=== PATIENT | female | born 1960 | race Caucasian/White ===

== ENCOUNTER 2017-03-31 06:42 | Day surgery (SDC) | payer MEDICAID ==
[2017-03-31] MEDS ORDERED: Sodium Chloride 0.9% 10 ML Syringe FLUSH PRN (06:45)
[2017-03-31] MEDS ORDERED: Lactated Ringers 1,000 ML IV SCH (06:45)
[2017-03-31] MEDS ORDERED: Propofol 200 MG/20 ML SDV IV ONE (08:00)
[2017-03-31] MEDS ORDERED: Midazolam 1 MG/ML 2 ML SDV IV ONE (08:00)
[2017-03-31] MEDS ORDERED: Lidocaine 2% 100 MG/5 ML Syringe IVPUSH ONE (08:00)
--- NOTE | 2017-03-31 08:13 | PCM.OPNOTE ---
- General Post-Op/Procedure Note Date of Surgery/Procedure: 03/31/17 Operative Procedure(s): egd with bx Findings: mild gastritis esophagitis Pre Op Diagnosis: gerd Post-Op Diagnosis: mild gastritis esophagitis Anesthesia Technique: MAC Primary Surgeon: Asael Kilgore Anesthesia Provider: Kaya Cali Pathology: stomach and duodenum Complications: None Condition: Good Free Text/Narrative:: see dictation
--- NOTE | 2017-03-31 13:46 | OR ---
DATE OF OPERATION: 03/31/2017 SURGEON: Asael Kilgore MD PROCEDURE PERFORMED: Esophagogastroduodenoscopy with cold forceps biopsy. PREOPERATIVE DIAGNOSIS: History of reflux disease, heartburn, and cough. POSTOPERATIVE DIAGNOSIS: Gastritis and esophagitis. INDICATIONS FOR PROCEDURE: This is a 56-year-old white female, who has had a longstanding history of gastroesophageal reflux disease. Recently, she has had an exacerbation of her symptoms. This has included heartburn as well as development of a chronic cough. She was offered and accepted an EGD. DESCRIPTION OF PROCEDURE: After an excellent IV sedation was administered, the bite block was inserted. The flexible endoscope was passed without difficulty down to the patient's esophagus into the stomach. The stomach was insufflated, and the scope was passed through the pylorus to the second portion of duodenum and slowly withdrawn. The following findings were noted. The duodenum was essentially unremarkable. No evidence of ulceration or duodenitis. Stomach, mild gastritis was noted. Multiple biopsies were taken, especially in the antrum. GE junction measured approximately 35 cm. The esophagus while did not demonstrate any marked esophagitis, some mild erythema was noted, especially around the area of the GE junction and biopsies were taken. The remainder of our esophageal exam was unremarkable. Stomach was deflated. Scope was removed. The patient tolerated the procedure well, and was taken to recovery room in good condition. /[id number] /MODL
== END 2017-03-31 09:04 | disposition home or self-care (01) ==
LOC: FB.SDS 06:42
PROVIDERS: ATTEND Surgery
DX: K29.40 Chronic atrophic gastritis without bleeding (principal); K20.9 Esophagitis, unspecified; J45.909 Unspecified asthma, uncomplicated; Z88.1 Allergy status to other antibiotic agents; Z91.040 Latex allergy status; Z88.8 Allergy status to other drugs, medicaments and biological substances; Z79.899 Other long term (current) drug therapy
CPT/HCPCS: 43239; 88305; 88342; J2250; J2704; J7120

== ENCOUNTER 2019-12-10 12:15 | Emergency (ER) | payer OTHER ==
[2019-12-10] MEDS ORDERED: Ondansetron 4 MG Tab.DIS PO ONE (12:16)
--- NOTE | 2019-12-10 13:30 | EDM.PDOC ---
ED HPI GENERAL MEDICAL PROBLEM - General Chief Complaint: Respiratory Problem Stated Complaint: COVID SYMPTOMS Time Seen by Provider: 12/10/19 12:25 Source of Information: Reports: Patient History Limitations: Reports: No Limitations - History of Present Illness INITIAL COMMENTS - FREE TEXT/NARRATIVE: Patient presented to the ED because of Covid symptoms. She developed fever and chills 5 days ago. # days prior to ER visit sshestarted to have cough productive of greenish phlegm and some dyspnea. There is no N/V/D. Head Pain Score (Numeric/FACES): 5 - Related Data Allergies Allergy/AdvReac Type Severity Reaction Status Date / Time latex Allergy Hives Verified 12/10/19 12:32 lidocaine Allergy Tachycardia Verified 12/10/19 12:32 oxycodone [From Tylox] Allergy Confusion Verified 12/10/19 12:32 ciprofloxacin [From Cipro] AdvReac Nausea and Verified 12/10/19 12:32 Vomiting Home Meds: Home Meds Albuterol [IJD: Albuterol HFA] 1 - 2 puff PO ASDIRECTED PRN 03/28/17 [History] Beclomethasone Dipropionate [Qvar 40 Mcg] 2 puff IH BID 03/28/17 [History] Celecoxib 100 mg PO DAILY 03/28/17 [History] LORazepam [Ativan] 0.5 mg PO QID PRN 03/28/17 [History] Sucralfate 1 gm PO QID 03/28/17 [History] Venlafaxine HCl [Venlafaxine ER] 37.5 mg PO DAILY 03/28/17 [History] Zolpidem [Ambien] 5 mg PO BEDTIME PRN 03/28/17 [History] estradioL [Estradiol] 0.5 mg VAG MOWEFR 03/28/17 [History] Ondansetron [Zofran ODT] 4 mg PO Q4H PRN #7 tab.dis 12/10/19 [Rx] Past Medical History HEENT History: Reports: Impaired Vision, Retinal Detachment Cardiovascular History: Reports: Other (See Below) Other Cardiovascular History: SLIGHTLY PROLAPSED MITRAL VALVE. Respiratory History: Reports: Asthma Gastrointestinal History: Reports: GERD Genitourinary History: Reports: UTI, Recurrent WARM IN WORKER History: Reports: Other (See Below) Other WARM IN WORKER History: MENOPAUSAL, VAGINITIS.VULVOVAGINITIS Musculoskeletal History: Reports: Gout Neurological History: Reports: None Psychiatric History: Reports: Anxiety Endocrine/Metabolic History: Reports: Obesity/BMI 30+ Hematologic History: Reports: None Immunologic History: Reports: None Oncologic (Cancer) History: Reports: None Dermatologic History: Reports: Eczema - Past Surgical History Head Surgeries/Procedures: Reports: None HEENT Surgical History: Reports: Detached Retina, Eye Surgery, Tonsillectomy Cardiovascular Surgical History: Reports: None Respiratory Surgical History: Reports: None GI Surgical History: Reports: Appendectomy, EGD Female Surgical History: Reports: Section, Hysterectomy Endocrine Surgical History: Reports: None Neurological Surgical History: Reports: None Musculoskeletal Surgical History: Reports: None Oncologic Surgical History: Reports: None Dermatological Surgical History: Reports: None Social & Family History - Caffeine Use Caffeine Use: Reports: Coffee ED ROS GENERAL - Review of Systems Review Of Systems: See Below Constitutional: Reports: Fever, Chills, Malaise, Weakness HEENT: Reports: No Symptoms, Contact Lenses Respiratory: Reports: Shortness of Breath, Cough, Sputum Cardiovascular: Reports: No Symptoms Endocrine: Reports: No Symptoms GI/Abdominal: Reports: No Symptoms : Reports: No Symptoms Musculoskeletal: Reports: No Symptoms Skin: Reports: No Symptoms Neurological: Reports: No Symptoms Psychiatric: Reports: No Symptoms Hematologic/Lymphatic: Reports: No Symptoms Immunologic: Reports: No Symptoms ED EXAM, GENERAL - Physical Exam Exam: See Below Exam Limited By: No Limitations General Appearance: Alert, No Apparent Distress Eye Exam: Bilateral Eye: PERRL Ears: Normal External Exam, Normal Canal Nose: Normal Inspection, Normal Mucosa, No Blood Throat/Mouth: Normal Inspection, Normal Lips Head: Atraumatic, Normocephalic Neck: Normal Inspection, Supple, Non-Tender, Full Range of Motion Respiratory/Chest: No Respiratory Distress, Lungs Clear, Normal Breath Sounds, No Accessory Muscle Use, Chest Non-Tender Cardiovascular: Normal Peripheral Pulses, Regular Rate, Rhythm, No Edema, No Gallop, No JVD, No Murmur, No Rub GI/Abdominal: Normal Bowel Sounds, Soft, Non-Tender, No Organomegaly Back Exam: Normal Inspection, Full Range of Motion Course - Vital Signs Text/Narrative:: Labs/CXR was discussed with patient COVID PCR-positive NS 1 L bolus Zofran 4 mg IV x1 Last Recorded V/S: Last Vital Signs Temp 37.7 C 12/10/19 14:15 Pulse 86 12/10/19 14:15 Resp 20 12/10/19 14:15 BP 120/79 12/10/19 14:15 Pulse Ox 95 12/10/19 14:15 - Orders/Labs/Meds Orders: Active Orders 24 hr Category Date Time Status Chest 1V Frontal [CR] Stat Exams 12/10/19 12:24 Ordered CBC WITH AUTO DIFF [HEME] Stat Lab 12/10/19 13:59 Ordered COMPREHENSIVE METABOLIC PN,CMP [CHEM] Stat Lab 12/10/19 13:59 Ordered CRP [C-REACTIVE PROTEIN] [CHEM] Stat Lab 12/10/19 13:59 Ordered Sodium Chloride 0.9% [Normal Saline] 1,000 ml Med 12/10/19 14:30 Active IV ASDIRECTED Sodium Chloride 0.9% [Saline Flush] Med 12/10/19 14:20 Active 10 ml FLUSH ASDIRECTED PRN Isolation [COMM] Routine Oth 12/10/19 12:28 Ordered Saline Lock Insert [OM.PC] Routine Oth 12/10/19 14:20 Ordered Medication Orders Sodium Chloride (Normal Saline) 1,000 mls @ 999 mls/hr IV ASDIRECTED ZO Sodium Chloride (Saline Flush) 10 ml FLUSH ASDIRECTED PRN PRN Reason: Keep Vein Open Labs: Laboratory Tests 12/10/19 Range/Units 12:48 SARS-CoV-2 RNA (PAT) Positive H (NEGATIVE) Meds: Medications Generic Name Dose Route Start Last Admin Trade Name Freq PRN Reason Stop Dose Admin Sodium Chloride 1,000 mls @ 999 mls/hr 12/10/19 14:30 Normal Saline IV ASDIRECTED ZO Sodium Chloride 10 ml 12/10/19 14:20 Saline Flush FLUSH ASDIRECTED PRN Keep Vein Open Discontinued Medications Generic Name Dose Route Start Last Admin Trade Name Freq PRN Reason Stop Dose Admin Ondansetron HCl 4 mg 12/10/19 14:20 Zofran IVPUSH 12/10/19 14:21 ONETIME ONE Departure - Departure Time of Disposition: 15:50 Disposition: Home, Self-Care 01 Condition: Good Clinical Impression: COVID-19 - Discharge Information Prescriptions: Ondansetron [Zofran ODT] 4 mg PO Q4H PRN #7 tab.dis PRN Reason: Nausea Instructions: COVID-19 Frequently Asked Questions Referrals: Davey Abel MD [Primary Care Provider] - Forms: ED Department Discharge Additional Instructions: Please read discharge instructions on COVID 19 Increase oral fluids Zofran ODT 4 mg every 4 hours as needed for nausea Take ibuprofen 800 mg with tylenol 1000 mg every 8 hours as needed for pain/fever Take Vit C,D,Zinc 1 tablet each daily Follow up as needed Sepsis Event Note (ED) - Evaluation Sepsis Screening Result: Possible Sepsis Risk - Focused Exam Vital Signs: Vital Signs Temp Temp Pulse Resp BP Pulse Ox 12/10/19 14:15 37.7 C 86 20 120/79 95 12/10/19 12:20 37.7 C 87 21 H 141/86 H 99 - My Orders Last 24 Hours: My Active Orders 12/10/19 12:24 Chest 1V Frontal [CR] Stat 12/10/19 12:28 Isolation [COMM] Routine 12/10/19 13:59 CBC WITH AUTO DIFF [HEME] Stat COMPREHENSIVE METABOLIC PN,CMP [CHEM] Stat CRP [C-REACTIVE PROTEIN] [CHEM] Stat 12/10/19 14:20 Sodium Chloride 0.9% [Saline Flush] 10 ml FLUSH ASDIRECTED PRN Saline Lock Insert [OM.PC] Routine 12/10/19 14:30 Sodium Chloride 0.9% [Normal Saline] 1,000 ml IV ASDIRECTED - Assessment/Plan Last 24 Hours: My Active Orders 12/10/19 12:24 Chest 1V Frontal [CR] Stat 12/10/19 12:28 Isolation [COMM] Routine 12/10/19 13:59 CBC WITH AUTO DIFF [HEME] Stat COMPREHENSIVE METABOLIC PN,CMP [CHEM] Stat CRP [C-REACTIVE PROTEIN] [CHEM] Stat 12/10/19 14:20 Sodium Chloride 0.9% [Saline Flush] 10 ml FLUSH ASDIRECTED PRN Saline Lock Insert [OM.PC] Routine 12/10/19 14:30 Sodium Chloride 0.9% [Normal Saline] 1,000 ml IV ASDIRECTED
[2019-12-10] MEDS ORDERED: Ondansetron 4 MG/2 ML SDV IVPUSH ONE (14:20)
[2019-12-10] MEDS ORDERED: Sodium Chloride 0.9% 10 ML Syringe FLUSH PRN (14:20)
[2019-12-10] MEDS ORDERED: Sodium Chloride 0.9% 1,000 ML IV SCH (14:30)
[2019-12-10] MEDS ORDERED: Sodium Chloride 0.9% 1,000 ML IV ONE (15:05)
[2019-12-10] MEDS ORDERED: Potassium Chloride 20 MEQ Tab.ER PO ONE ×2 (15:06→17:08)
--- NOTE | 2019-12-10 15:08 | CR ---
INDICATION: Cough. Dyspnea. CHEST, TWO VIEWS: An AP upright portable view of the chest was obtained in a COVID-19 positive patient and revealed the heart to be normal in size allowing for the AP positioning and relatively poor inspiration. Areas of patchy infiltration at the mid to lower lung ospina peripherally are compatible with COVID-19 diagnosis, but should be correlated clinically. No gross pleural effusion was seen. The aorta is tortuous with minimal calcification suggested in the arch. IMPRESSION: 1. There are some areas of increased density at the lung bases, compatible with patchy infiltration peripherally for the most part. 2. Exogenous obesity. 3. ASD aorta. MTDD
[2019-12-10] MEDS ORDERED: Potassium Chloride 20 MEQ Packet PO ONE (15:15)
== END 2019-12-10 17:35 | disposition home or self-care (01) ==
LOC: FB.ED 12:15
DX: U07.1 COVID-19 (principal); J45.909 Unspecified asthma, uncomplicated; K21.9 Gastro-esophageal reflux disease without esophagitis; M10.9 Gout, unspecified; F41.9 Anxiety disorder, unspecified; E66.9 Obesity, unspecified; Z68.32 Body mass index [BMI] 32.0-32.9, adult; Z91.040 Latex allergy status; Z88.4 Allergy status to anesthetic agent; Z88.5 Allergy status to narcotic agent; Z88.1 Allergy status to other antibiotic agents; Z79.899 Other long term (current) drug therapy
CPT/HCPCS: 36415; 71045; 80053; 85025; 86140; 87635; 87804; 96374; 99285; A9270; J2405; J7030; 99284; U0002

== ENCOUNTER 2022-11-02 20:15 | Emergency (ER) | payer OTHER ==
[2022-11-02 20:41] LABS: BASOPHILS PERCENT AUTO 0.5 % (0.2-1.5); EOSINOPHILS ABSOLUTE AUTO 0.5 x10-3/uL (0.0-0.8); EOSINOPHILS PERCENT AUTO 5.5 % (0.6-8.1); HEMATOCRIT 45.9 % (34.2-48.2); HEMOGLOBIN 15.7 g/dL (11.4-15.5); LYMPHOCYTES ABSOLUTE AUTO 2.5 x10-3/uL (1.0-4.4); MEAN CORPUSCULAR HEMOGLOBIN 29.2 pg (23.9-33.9); MEAN CORPUSCULAR HGB CONC 34.2 g/dL (31.9-34.8); MEAN CORPUSCULAR VOLUME 85.4 fL (76.7-100.5); MEAN PLATELET VOLUME 8.1 fL (7.1-12.4); MONOCYTES ABSOLUTE AUTO 1.4 x10-3/uL (0.3-1.0); MONOCYTES PERCENT AUTO 14.9 % (4.4-15.7); NEUTROPHILS ABSOLUTE AUTO 4.9 x10-3/uL (1.5-6.3); NEUTROPHILS PERCENT AUTO 52.1 % (30.8-76.2); PLATELET COUNT,PLT 283 x10(3)uL (151-488); RED BLOOD CELL COUNT 5.38 x10(6)uL (3.60-5.20); RED CELL DISTRIBUTION WIDTH 13.6 % (12.3-16.5); WHITE BLOOD CELL COUNT,WBC 9.4 x10-3/uL (3.0-10.3)
[2022-11-02 20:52] LABS: ALANINE AMINOTRANSFERASE,ALT 33 U/L (12-36); ALBUMIN 3.6 g/dL (3.2-4.6); ALKALINE PHOSPHATASE 97 IU/L (56-112); ASPARTATE AMNIOTRANSFERASE,AST 15 IU/L (5-25); BILIRUBIN TOTAL 0.3 mg/dL (0.1-1.3); BLOOD UREA NITROGEN,BUN 16 mg/dL (7-18); BUN/CREATININE RATIO 17.8 (9-20); CALCIUM 9.5 mg/dL (8.6-10.2); CARBON DIOXIDE,CO2 31 mmol/L (21-32); CHLORIDE,CL 101 mmol/L (100-110); CREATININE 0.9 mg/dL (0.55-1.02); ESTIMATED GFR 73 mL/min (>60); GLUCOSE RANDOM 105 mg/dL (80-116); PROTEIN TOTAL,TP 7.3 g/dL (6.0-8.0); SODIUM,NA 141 mmol/L (135-145)
[2022-11-02 20:55] LABS: POTASSIUM,K 2.3 mmol/L (3.5-5.3)
[2022-11-02] MEDS ORDERED: Sodium Chloride 0.9% 10 ML Syringe FLUSH PRN (20:55)
[2022-11-02] MEDS ORDERED: Potassium Chloride 20 MEQ Tab.ER PO ONE (20:59)
[2022-11-02] MEDS ORDERED: NS + KCl 20mEq/L 1,000 ML IV SCH (21:00)
[2022-11-02 21:22] LABS: INFLUENZA A NAA NEGATIVE (NEGATIVE); INFLUENZA B NAA NEGATIVE (NEGATIVE); RESPIRATORY SYNCYTIAL VIR NAA NEGATIVE (NEGATIVE)
[2022-11-02 21:48] LABS: CORONAVIRUS COVID-19 NAA NEGATIVE (NEGATIVE)
== END 2022-11-02 23:18 | disposition home or self-care (01) ==
LOC: FB.ED 20:15
DX: R00.2 Palpitations (principal); J45.909 Unspecified asthma, uncomplicated; E66.9 Obesity, unspecified; Z20.822 Contact with and (suspected) exposure to COVID-19; Z79.899 Other long term (current) drug therapy; Z91.040 Latex allergy status; Z88.1 Allergy status to other antibiotic agents; Z88.8 Allergy status to other drugs, medicaments and biological substances; Z68.34 Body mass index [BMI] 34.0-34.9, adult
CPT/HCPCS: 0241U; 36415; 71045; 80053; 83735; 83880; 84484; 85025; 93005; 96365; 96366; 99285-25; A9270-GY; J3480; J3490